=== PATIENT | male | born 1950 | race Caucasian/White ===

== ENCOUNTER 2016-12-31 11:33 | Inpatient (IN) | payer MEDICARE, OTHER ==
[~2016-12-31] VITALS: Ht 172.7 cm; Wt 66.0 kg
[2016-12-31] MEDS ORDERED: IOHEXOL 350 MG/ML 10 ML VIAL (for RAD DIAG) IVCONTRAST ONE (11:34)
[2016-12-31 11:36] VITALS: BP 137/74; PULSE 105; RESP 15; TEMP 98.2; O2SAT 98
--- NOTE | 2016-12-31 11:50 | PD ---
Physical Exam Date Seen by Provider: Dec 31, 2016 Time Seen by Provider: 11:48 Narrative 66 year old male here for evaluation of left arm pain and likely infection. Seen by his PCP who told him to come here for IV antibiotics. Has pain and swelling to the left arm. Been going on for a few weeks. Unknown how he got it. Denies anything like this before. Slightly painful today. Patient has erythema to the left ventral arm with what appears to be a possible ulcer/abscess draining. Vitals are stable in triage. Patient awaiting bed placement. Data Data Last Documented VS Vital Signs Date Time Temp Pulse Resp B/P (MAP) Pulse Ox O2 Delivery O2 Flow Rate FiO2 12/31/16 11:36 98.2 105 15 137/74 (14) 98 MDM Medical Record Reviewed: Yes Supervised Visit with KATELYN: Aurelio Oglesby Dec 31, 2016 11:50
[2016-12-31 12:38] VITALS: BP 133/63; PULSE 105; TEMP 99.2; O2SAT 99
[2016-12-31] MEDS ORDERED: PREG25 PO (12:46)
[2016-12-31] MEDS ORDERED: HYDR12.57 PO (12:46)
[2016-12-31] MEDS ORDERED: VANCOMYCIN INJ 1,000 MG in SODIUM CHLOR 0.9% 250 ML INJ 250 ML IV SCH (13:15)
[2016-12-31] MEDS ORDERED: PIPERACIL-TAZO 4.5 GM PREMIX 100 ML IV ONE (13:15)
[2016-12-31] MEDS ORDERED: SODIUM CHLOR 0.9% 1000 ML INJ 1,000 ML IV ONE (13:15)
[2016-12-31 13:26] LABS: BASOPHIL # 0.1 TH/MM3 (0-0.2); BASOPHIL % 0.5 % (0.0-2.0); EOSINOPHIL # 0.7 TH/MM3 (0-0.4); EOSINOPHIL % 5.1 % (0.0-4.0); HEMATOCRIT 39.7 % (39.0-51.0); LYMPH % 14.6 % (9.0-44.0); MEAN CELL VOLUME 92.5 FL (80.0-100.0); MEAN CORPUSCULAR HEMOGLOBIN 32.2 PG (27.0-34.0); MEAN CORPUSCULAR HGB CONC 34.8 % (32.0-36.0); MONO % 7.7 % (0.0-8.0); NEUT % 72.1 % (16.0-70.0); PLATELET COUNT 340 TH/MM3 (150-450); RED BLOOD COUNT 4.29 MIL/MM3 (4.50-5.90); RED CELL DISTRIBUTION WIDTH 14.1 % (11.6-17.2); WHITE BLOOD COUNT 13.9 TH/MM3 (4.0-11.0)
[2016-12-31 13:27] LABS: HEMO FLAGS AUTO DIFF
[2016-12-31 13:59] LABS: BANDS 9 % (0-6); EOSINOPHILS 5 % (0-4); METAMYELOCYTES 1 % (0-1); PLATELET ESTIMATE SMEAR NORMAL (NORMAL); PLATELET MORPHOLOGY NORMAL (NORMAL); POLYS (SEG NEUTROPHILS) 62 % (16-70); SCAN/DIFF FINAL DIFF MANUAL; WBC DIFF SAMPLE 100
--- NOTE | 2016-12-31 14:20 | PD ---
HPI Chief Complaint: Skin Problem Time Seen by Provider: 12:46 Travel History International Travel<30 days: No Contact w/Intl Traveler<30days: No Traveled to known affect area: No History of Present Illness HPI 66-year-old male came to the emergency room with history of left upper extremity redness and swelling that patient noticed this morning. Patient fell about 4 or 5 days ago and had abrasion and bleeding on his elbow. However was feeling okay except this morning when he noticed this. He went to see his primary care who asked them to come to the emergency room because it was very extensive with a central ulceration. She denies any fever or chills. He was slightly tachycardic upon arrival. Patient says he has had polio as a child which affected his left upper extremity. Patient complains of some pain. Patient is a recovering alcoholic and has not drank in past 6 months. [facility] Past Medical History Narrative Medical List of his past medical, surgical, social and family history as reviewed from the nursing note. Cardiovascular Problems: Yes Diabetes: Yes Patient Takes Glucophage: No Hypertension: Yes Past Surgical History Surgical History: No Previous Surgery Social History Alcohol Use: No Tobacco Use: Yes Substance Use: No Allergies-Medications (Allergen,Severity, Reaction): Coded Allergies: No Known Allergies (Verified Allergy, Unknown, 12/31/16) Comments No known drug allergies. Reported Meds & Prescriptions Reported Meds & Active Scripts Active Reported Hydrochlorothiazide 12.5 Mg Cap 12.5 Mg PO DAILY Lyrica (Pregabalin) 25 Mg Cap 25 Mg PO DAILY Narrative Medication List of his home medications reviewed from the nursing note. Review of Systems Except as stated in HPI: all other systems reviewed are Neg Physical Exam Narrative GENERAL: Awake, alert, mild distress SKIN: Focused skin assessment warm/dry. extensive erythema and swelling of his left upper extremity distal to the elbow with his multiple blisters that seemed clear fluid filled. There is a 2 x 2 centimeter ulceration with his whitish base on the radial aspect of the forearm proximally. No active bleeding. HEAD: Atraumatic. Normocephalic. EYES: Pupils equal and round. No scleral icterus. No injection or drainage. ENT: No nasal bleeding or discharge. Mucous membranes pink and moist. NECK: Trachea midline. No JVD. CARDIOVASCULAR: Regular rate and rhythm. No murmur appreciated. RESPIRATORY: No accessory muscle use. Clear to auscultation. Breath sounds equal bilaterally. GASTROINTESTINAL: Abdomen soft, non-tender, nondistended. Hepatic and splenic margins not palpable. MUSCULOSKELETAL: No obvious deformities. No clubbing. No cyanosis. No edema. NEUROLOGICAL: Awake and alert. No obvious cranial nerve deficits. Motor grossly within normal limits. Normal speech. PSYCHIATRIC: Appropriate mood and affect; insight and judgment normal. Data Data Last Documented VS Orders Orders Basic Metabolic Panel (Bmp) (12/31/16 11:51) Complete Blood Count With Diff (12/31/16 11:51) Blood Culture (12/31/16 11:51) Wound Culture And Gram Stain (12/31/16 11:51) Lactic Acid (12/31/16 11:51) Piperacil-Tazo 4.5 Gm Premix (Zosyn 4.5 (12/31/16 13:15) Vancomycin Inj (Vancomycin Inj) (12/31/16 13:15) Sodium Chlor 0.9% 1000 Ml Inj (Ns 1000 M (12/31/16 13:15) Information Clerk / Telemetry [email or web address] (12/31/16 13:09) Ct Forearm W Iv Contrast (12/31/16 ) Iohexol 350 Inj (Omnipaque 350 Inj) (12/31/16 11:34) Hydrochlorothiazide (Microzide) (01/01/17 09:00) Pregabalin (Lyrica) (01/01/17 09:00) Admit Order (Ed Use Only) (12/31/16 17:54) Labs Laboratory Tests Test 12/31/16 12:50 12/31/16 13:50 12/31/16 15:05 White Blood Count 13.9 TH/MM3 Red Blood Count 4.29 MIL/MM3 Hemoglobin 13.8 GM/DL Hematocrit 39.7 % Mean Corpuscular Volume 92.5 FL Mean Corpuscular Hemoglobin 32.2 PG Mean Corpuscular Hemoglobin Concent 34.8 % Red Cell Distribution Width 14.1 % Platelet Count 340 TH/MM3 Mean Platelet Volume 8.8 FL Neutrophils (%) (Auto) 72.1 % Lymphocytes (%) (Auto) 14.6 % Monocytes (%) (Auto) 7.7 % Eosinophils (%) (Auto) 5.1 % Basophils (%) (Auto) 0.5 % Neutrophils # (Auto) 10.0 TH/MM3 Lymphocytes # (Auto) 2.0 TH/MM3 Monocytes # (Auto) 1.1 TH/MM3 Eosinophils # (Auto) 0.7 TH/MM3 Basophils # (Auto) 0.1 TH/MM3 CBC Comment AUTO DIFF Differential Total Cells Counted 100 Neutrophils % (Manual) 62 % Band Neutrophils % 9 % Lymphocytes % 14 % Monocytes % 9 % Eosinophils % 5 % Neutrophils # (Manual) 10.0 TH/MM3 Metamyelocytes 1 % Differential Comment FINAL DIFF MANUAL Platelet Estimate NORMAL Platelet Morphology Comment NORMAL Lactic Acid Level 0.8 mmol/L Blood Urea Nitrogen 18 MG/DL Creatinine 0.61 MG/DL Random Glucose 95 MG/DL Calcium Level 8.6 MG/DL Sodium Level 138 MEQ/L Potassium Level 5.5 MEQ/L Chloride Level 106 MEQ/L Carbon Dioxide Level 24.5 MEQ/L Anion Gap 8 MEQ/L Estimat Glomerular Filtration Rate 133 ML/MIN MDM Medical Decision Making Medical Screen Exam Complete: Yes Emergency Medical Condition: Yes Medical Record Reviewed: Yes Differential Diagnosis Cellulitis, necrotizing fasciitis, abscess Narrative Course 3:24 PM CBC shows leukocytosis with bandemia. Awaiting for the chemistry and upper extremity CT to rule out necrotizing fasciitis. Patient was given IV vancomycin and IV Zosyn. The chemistry was a week collect. Patient was also given 1 L of IV fluid bolus. 4:09 PM BMP report is finally back. It is within acceptable limits except for a potassium of 5.5 which in my opinion this probably from hemolysis. Awaiting for the CT scan of the arm to be done and resulted. 4:58 PM awaiting for [address] CT to be done and resulted. 5:[address] scan is suggestive of cellulitis without any abscess collection. Given the patient bandemia I would like to admit him for further IV antibiotic treatment. Patient is reluctantly agreeable to this plan. The hospitalist has accepted the patient. Procedures EKG Prior to Arrival: No Diagnosis Primary Impression: Cellulitis of left forearm Admitting Information Admitting Physician Requests: Observation Scripts Levofloxacin (Levaquin) 500 Mg Tablet 500 MG PO DAILY for left upper extremity wound MDD 1 for 7 Days, #7 EA Prov: Rory Wyatt MD 01/03/17 Cephalexin (Cephalexin) 500 Mg Cap 500 MG PO Q8HR for left upper extremity wound MDD 3 for 7 Days, #21 CAP 0 Refills Use as prescribed Prov: Rory Wyatt MD 01/03/17 Mary Jo Maguire MD Dec 31, 2016 14:20
[2016-12-31 16:02] LABS: BICARBONATE 24.5 MEQ/L (21.0-32.0); POTASSIUM 5.5 MEQ/L (3.5-5.1)
--- NOTE | 2016-12-31 17:14 | RADRPT ---
EXAM DATE/TIME: 12/31/2016 16:38 [facility] COMPARISON: No previous studies available for comparison. INDICATIONS : Reddness and swelling to left forearm. IV CONTRAST: 76 cc Omnipaque 350 (iohexol) IV RADIATION DOSE: 14.35 CTDIvol (mGy) MEDICAL HISTORY : Hypertension. Diabetes mellitus type 2. SURGICAL HISTORY : None. ENCOUNTER: Initial ACUITY: 1 day PAIN SCALE: 5/10 LOCATION: Left forearm TECHNIQUE: Volumetric scanning of the forearm was performed. Using automated exposure control and adjustment of the mA and/or kV according to patient size, radiation dose was kept as low as reasonably achievable to obtain optimal diagnostic quality images. DICOM format image data is available electronically fo r review and comparison. FINDINGS: The postcontrast images demonstrate cellulitic changes along the ulnar side of the left forearm. Ther e are edematous changes within the flexor carpi ulnaris at its attachment to the medial humeral epico ndyle. No focal, defined abscess collection is evident. The radius and ulna are intact. No acute fracture is seen. No retained foreign body is present. CONCLUSION: 1. There is cellulitic changes with a small amount of fluid in the deep subcutaneous tissues and with in the proximal flexor carpi ulnaris. No focal, defined abscess collection is evident. No retained fo reign body is seen. Jef Real MD on December 31, 2016 at 17:08 Board Certified Radiologist. This report was verified electronically.
[2016-12-31] MEDS ORDERED: SODIUM CHLORIDE 0.9% FLUSH 10 ML FLUSH IV FLUSH PRN (18:00)
[2016-12-31] MEDS ORDERED: BISACODYL 10 MG SUPP RECTAL PRN (18:00)
[2016-12-31] MEDS ORDERED: ONDANSETRON HCL 4 MG/2 ML VIAL IVP PRN (18:00)
[2016-12-31] MEDS ORDERED: NALOXONE HCL 0.4 MG/ML AMP IV PUSH PRN (18:00)
[2016-12-31] MEDS ORDERED: MAGNESIUM HYDROXIDE SUSP 30 ML CUP PO PRN (18:00)
[2016-12-31] MEDS ORDERED: SENNOSIDES 8.6 MG TAB PO PRN (18:00)
[2016-12-31] MEDS ORDERED: LACTULOSE SYRUP 20 GM/30 ML CUP PO PRN (18:00)
--- NOTE | 2016-12-31 18:10 | HHI.HP ---
HPI Service [facility] Primary Care Physician Kyle Bui, DO Admission Diagnosis forearm cellulitis Diagnoses: Travel History International Travel<30 Days: No Contact w/Intl Traveler <30 Da: No Traveled to Known Affected Are: No History of Present Illness This is a pleasant 66-year-old male patient of Dr. Bui. The patient fell while walking on the beach with his grandchildren about 4-5 days ago. He fell on the sand. He noticed an abrasion on his left upper extremity. This was on the lateral aspect of his proximal left forearm just distal to his left olecranon. This morning he had swelling and redness involving the area proximal to his left wrist up to his mid upper arm. He also has swelling especially around his left elbow and has had problems bending his elbow today. He does not have any problems with his left hand. No fever chills or diaphoresis. He has some ulceration in the anterior aspect of his left proximal forearm with some crusting and is erythema over the whole anterior forearm of the left upper extremity. He is a recovering alcoholic and has not drunk for 6 months. He smokes one cigarette today. He would like to go home today. Review of Systems Other 10 systems reviewed and negative except for the above Past Family Social History Past Medical History Hypertension Diabetes mellitus on oral agents Peripheral neuropathy Polio involving his left upper extremity Reported Medications Reported Meds & Active Scripts Active Reported Hydrochlorothiazide 12.5 Mg Cap 12.5 Mg PO DAILY Lyrica (Pregabalin) 25 Mg Cap 25 Mg PO DAILY Allergies: Coded Allergies: No Known Allergies (Verified Allergy, Unknown, 12/31/16) Family History Significant for diabetes in several family members Social History Former alcoholic, quit alcohol 6 months ago, smokes 1 cigarette a day, no illicit drug use Physical Exam Vital Signs Vital Signs Date Time Temp Pulse Resp B/P (MAP) Pulse Ox O2 Delivery O2 Flow Rate FiO2 12/31/16 12:38 99.2 105 133/63 (86) 99 Room Air 12/31/16 11:36 98.2 105 15 137/74 (95) 98 Physical Exam GENERAL: This is a well-nourished, well-developed patient, in no apparent distress. SKIN: He has several abrasions over his left upper extremity but he has an ulcer on the anterior aspect of the proximal left forearm with a granulating base, is about a quarter in size, or so he has chronic crusting and some erythema around that area with redness and swelling in the skin ranging from the distal left forearm just proximal to the left wrist up to the mid upper arm on the left. He does move his elbow somewhat however both extremes of flexion and extension are limited. The elbow joint itself is tender to palpate Incidentally has a very significant clubbing in all fingers HEAD: Atraumatic. Normocephalic. No temporal or scalp tenderness. EYES: Pupils equal round and reactive. Extraocular motions intact. No scleral icterus. No injection or drainage. ENT: Nose without bleeding, purulent drainage or septal hematoma. Throat without erythema, tonsillar hypertrophy or exudate. Uvula midline. Airway patent. NECK: Trachea midline. No JVD or lymphadenopathy. Supple, nontender, no meningeal signs. CARDIOVASCULAR: Regular rate and rhythm without murmurs, gallops, or rubs. RESPIRATORY: Clear to auscultation. Breath sounds equal bilaterally. No wheezes , rales, or rhonchi. GASTROINTESTINAL: Abdomen soft, non-tender, nondistended. No hepato-splenomegaly , or palpable masses. No guarding. MUSCULOSKELETAL: No calf tenderness.. NEUROLOGICAL: Awake and alert. Cranial nerves II through XII intact. Motor and sensory grossly within normal limits. Five out of 5 muscle strength in all muscle groups. Normal speech. Laboratory Laboratory Tests Test 12/31/16 12:50 12/31/16 13:50 12/31/16 15:05 White Blood Count 13.9 Red Blood Count 4.29 Hemoglobin 13.8 Hematocrit 39.7 Mean Corpuscular Volume 92.5 Mean Corpuscular Hemoglobin 32.2 Mean Corpuscular Hemoglobin Concent 34.8 Red Cell Distribution Width 14.1 Platelet Count 340 Mean Platelet Volume 8.8 Neutrophils (%) (Auto) 72.1 Lymphocytes (%) (Auto) 14.6 Monocytes (%) (Auto) 7.7 Eosinophils (%) (Auto) 5.1 Basophils (%) (Auto) 0.5 Neutrophils # (Auto) 10.0 Lymphocytes # (Auto) 2.0 Monocytes # (Auto) 1.1 Eosinophils # (Auto) 0.7 Basophils # (Auto) 0.1 CBC Comment AUTO DIFF Differential Total Cells Counted 100 Neutrophils % (Manual) 62 Band Neutrophils % 9 Lymphocytes % 14 Monocytes % 9 Eosinophils % 5 Neutrophils # (Manual) 10.0 Metamyelocytes 1 Differential Comment FINAL DIFF MANUAL Platelet Estimate NORMAL Platelet Morphology Comment NORMAL Lactic Acid Level 0.8 Blood Urea Nitrogen 18 Creatinine 0.61 Random Glucose 95 Calcium Level 8.6 Sodium Level 138 Potassium Level 5.5 Chloride Level 106 Carbon Dioxide Level 24.5 Anion Gap 8 Estimat Glomerular Filtration Rate 133 Date/Time Source Procedure Growth Status 12/31/16 12:50 Blood Peripheral Aerobic Blood Culture Pending Received 12/31/16 12:50 Blood Peripheral Anaerobic Blood Culture Pending Received 12/31/16 12:50 Wound Arm Gram Stain Pending Received 12/31/16 12:50 Wound Arm Wound Culture Pending Received Result Diagram: 12/31/16 1250 12/31/16 1505 Imaging Last Impressions Upper Extremity CT 12/31/16 0000 Signed Impressions: Service Date/Time: Saturday, December 31, 2016 16:38 - CONCLUSION: 1. There is cellulitic changes with a small amount of fluid in the deep subcutaneous tissues and within the proximal flexor carpi ulnaris. No focal, defined abscess collection is evident. No retained foreign body is seen. Jef Real MD Caprini VTE Risk Assessment Caprini VTE Risk Assessment: Mod/High Risk (score >= 2) Caprini Risk Assessment Model Point Value = 1 Point Value = 2 Point Value = 3 Point Value = 5 Age 41-60 Minor surgery BMI > 25 kg/m2 Swollen legs Varicose veins or History of unexplained or recurrent spontaneous Oral contraceptives or hormone replacement Sepsis (< 1 month) Serious lung disease, including pneumonia (< 1 month) Abnormal pulmonary function Acute myocardial infarction Congestive heart failure (< 1 month) History of inflammatory bowel disease Medical patient at bed rest Age 61-74 Arthroscopic surgery Major open surgery (> 45 min) Laparoscopic surgery (> 45 min) Malignancy Confined to bed (> 72 hours) Immobilizing plaster cast Central venous access Age >= 75 History of VTE Family history of VTE Factor V Leiden Prothrombin [id number] Lupus anticoagulant Anticardiolipin antibodies Elevated serum homocysteine Heparin-induced thrombocytopenia Other congenital or acquired thrombophilia Stroke (< 1 month) Elective arthroplasty Hip, pelvis, or leg fracture Acute spinal cord injury (< 1 month) Prophylaxis Regimen Total Risk Factor Score Risk Level Prophylaxis Regimen 0-1 Low Early ambulation 2 Moderate Order ONE of the following: *Sequential Compression Device (SCD) *Heparin 5000 units SQ BID 3-4 Higher Order ONE of the following medications: *Heparin 5000 units SQ TID *Enoxaparin/Lovenox 40 mg SQ daily (WT < 150 kg, CrCl > 30 mL/min) *Enoxaparin/Lovenox 30 mg SQ daily (WT < 150 kg, CrCl > 10-29 mL/min) *Enoxaparin/Lovenox 30 mg SQ BID (WT < 150 kg, CrCl > 30 mL/min) AND/OR *Sequential Compression Device (SCD) 5 or more Highest Order ONE of the following medications: *Heparin 5000 units SQ TID (Preferred with Epidurals) *Enoxaparin/Lovenox 40 mg SQ daily (WT < 150 kg, CrCl > 30 mL/min) *Enoxaparin/Lovenox 30 mg SQ daily (WT < 150 kg, CrCl > 10-29 mL/min) *Enoxaparin/Lovenox 30 mg SQ BID (WT < 150 kg, CrCl > 30 mL/min) AND *Sequential Compression Device (SCD) Assessment and Plan Assessment and Plan Assessment Cellulitis involving left upper extremity Swelling involving the area around the left elbow Hyperkalemia Leukocytosis Bandemia Ulcer on the anterior aspect of the proximal left forearm Tobacco use Former alcoholic Management The patient has been admitted to medical floor He was given his first dose of antibiotics at the emergency department. This included Zosyn and vancomycin Follow white count Repeat potassium level and follow DVT prophylaxis with low-dose heparin Consult infectious disease Discussed with patient Discussed with emergency physician 40 minutes Discussed With: Rory Torres MD Dec 31, 2016 18:10
[2016-12-31] MEDS ORDERED: DEXTROSE 50% IN WATER 50 ML VIAL(D50) IV PUSH PRN (18:15)
[2016-12-31] MEDS ORDERED: GLUCAGON 1 MG/ML VIAL OTHER PRN (18:15)
[2016-12-31] MEDS: SODIUM CHLOR 0.9% 1000 ML INJ 1,000 ML IV SCH (18:42)
[2016-12-31 19:54] VITALS: BP 130/64; PULSE 98; RESP 16; O2SAT 98
[2016-12-31 20:00] VITALS: BP 134/67; PULSE 98; RESP 22; TEMP 97.4; O2SAT 97
[2016-12-31] MEDS: INSULIN ASPART SUPPLEMENTAL SCALE SQ SCH (20:15)
[2016-12-31] MEDS: HEPARIN SODIUM - SQ 10,000 UNITS/ML VIAL SQ SCH (20:36)
[2016-12-31] MEDS: SODIUM CHLORIDE 0.9% FLUSH 10 ML FLUSH IV FLUSH SCH (20:41)
[2016-12-31] MEDS: DOCUSATE SODIUM 50 MG/SENNA 8.6 MG TAB PO SCH (20:41)
[2017-01-01] VITALS (7 sets, daily range): BP systolic 118–139; BP diastolic 63–77; PULSE 81–98; RESP 18–22; TEMP 96.8–98.4; O2SAT 95–99
[2017-01-01] MEDS: PIPERACIL-TAZO 3.375 GM PREMIX 50 ML IV SCH ×5 (00:29→22:57)
[2017-01-01] MEDS: VANCOMYCIN INJ 1,000 MG in SODIUM CHLOR 0.9% 250 ML INJ 250 ML IV SCH ×2 (04:21→15:34)
[2017-01-01] MEDS: SODIUM CHLOR 0.9% 1000 ML INJ 1,000 ML IV SCH (04:22)
[2017-01-01] MEDS ORDERED: TRAZ50TA12 PO (06:15)
[2017-01-01] MEDS ORDERED: HYDR-3288 PO (06:19)
[2017-01-01 06:53] LABS: AUTOMATED NEUTROPHIL # 6.3 TH/MM3 (1.8-7.7); BASOPHIL # 0.1 TH/MM3 (0-0.2); BASOPHIL % 0.7 % (0.0-2.0); EOSINOPHIL # 0.7 TH/MM3 (0-0.4); EOSINOPHIL % 6.9 % (0.0-4.0); LYMPH % 19.8 % (9.0-44.0); MEAN CELL VOLUME 92.9 FL (80.0-100.0); MEAN CORPUSCULAR HEMOGLOBIN 31.9 PG (27.0-34.0); MEAN CORPUSCULAR HGB CONC 34.3 % (32.0-36.0); MONO % 8.6 % (0.0-8.0); PLATELET COUNT 315 TH/MM3 (150-450); RED BLOOD COUNT 4.09 MIL/MM3 (4.50-5.90); RED CELL DISTRIBUTION WIDTH 13.7 % (11.6-17.2); WHITE BLOOD COUNT 9.8 TH/MM3 (4.0-11.0)
[2017-01-01 06:54] LABS: HEMO FLAGS AUTO DIFF
[2017-01-01 07:21] LABS: BICARBONATE 24.6 MEQ/L (21.0-32.0); POTASSIUM 3.6 MEQ/L (3.5-5.1)
[2017-01-01] MEDS: INSULIN ASPART SUPPLEMENTAL SCALE SQ SCH ×4 (07:51→19:55)
[2017-01-01] MEDS: HYDROCHLOROTHIAZIDE 12.5 MG CAP PO SCH (08:57)
[2017-01-01] MEDS: DOCUSATE SODIUM 50 MG/SENNA 8.6 MG TAB PO SCH ×2 (08:58→19:55)
[2017-01-01] MEDS: HEPARIN SODIUM - SQ 10,000 UNITS/ML VIAL SQ SCH ×2 (08:58→19:55)
[2017-01-01] MEDS: SODIUM CHLORIDE 0.9% FLUSH 10 ML FLUSH IV FLUSH SCH ×2 (08:58→19:55)
[2017-01-01 09:27] LABS: BANDS 15 % (0-6); EOSINOPHILS 6 % (0-4); MYELOCYTES 3 % (0-0); NEUTROPHIL # MANUAL DIFF 6.3 TH/MM3 (1.8-7.7); PLATELET ESTIMATE SMEAR NORMAL (NORMAL); PLATELET MORPHOLOGY NORMAL (NORMAL); POLYS (SEG NEUTROPHILS) 46 % (16-70); SCAN/DIFF FINAL DIFF MANUAL; WBC DIFF SAMPLE 100
[2017-01-01] MEDS: PREGABALIN 25 MG CAP PO SCH (11:09)
--- NOTE | 2017-01-01 13:21 | HHI.PR ---
Subjective Subjective Remarks Asking what is his diagnoses Complaining of bilateral hip pain, was prescribed hydrocodone as outpatient No chest pain No shortness of breath No fever Tolerating diet well Asking if he is going to be discharged soon, concerned about being able to pay for his rent. Review of Systems Constitutional Constitutional Remarks 12 point review of systems completed, negative except as noted above Vitals/Results Vital Signs Vital Signs Date Time Temp Pulse Resp B/P (MAP) Pulse Ox O2 Delivery O2 Flow Rate FiO2 01/01/17 12:09 18 01/01/17 12:00 97.4 85 18 139/73 (95) 96 01/01/17 08:00 97.0 98 18 123/69 (87) 95 01/01/17 04:00 97.5 85 22 119/66 (83) 99 01/01/17 00:00 98.4 91 22 118/63 (81) 96 12/31/16 20:00 97.4 98 22 134/67 (89) 97 12/31/16 19:55 12/31/16 19:54 98 16 130/64 (86) 98 Room Air CBC/BMP: 01/01/17 0607 01/01/17 0607 Lab Results Laboratory Tests Test 12/31/16 13:50 12/31/16 15:05 12/31/16 18:10 01/01/17 06:07 Lactic Acid Level 0.8 mmol/L Blood Urea Nitrogen 18 MG/DL 11 MG/DL Creatinine 0.61 MG/DL 0.57 MG/DL Random Glucose 95 MG/DL 92 MG/DL Calcium Level 8.6 MG/DL 8.6 MG/DL Sodium Level 138 MEQ/L 141 MEQ/L Potassium Level 5.5 MEQ/L 3.7 MEQ/L 3.6 MEQ/L Chloride Level 106 MEQ/L 109 MEQ/L Carbon Dioxide Level 24.5 MEQ/L 24.6 MEQ/L Anion Gap 8 MEQ/L 7 MEQ/L Estimat Glomerular Filtration Rate 133 ML/MIN 144 ML/MIN White Blood Count 9.8 TH/MM3 Red Blood Count 4.09 MIL/MM3 Hemoglobin 13.0 GM/DL Hematocrit 38.0 % Mean Corpuscular Volume 92.9 FL Mean Corpuscular Hemoglobin 31.9 PG Mean Corpuscular Hemoglobin Concent 34.3 % Red Cell Distribution Width 13.7 % Platelet Count 315 TH/MM3 Mean Platelet Volume 8.7 FL Neutrophils (%) (Auto) 64.0 % Lymphocytes (%) (Auto) 19.8 % Monocytes (%) (Auto) 8.6 % Eosinophils (%) (Auto) 6.9 % Basophils (%) (Auto) 0.7 % Neutrophils # (Auto) 6.3 TH/MM3 Lymphocytes # (Auto) 2.0 TH/MM3 Monocytes # (Auto) 0.8 TH/MM3 Eosinophils # (Auto) 0.7 TH/MM3 Basophils # (Auto) 0.1 TH/MM3 CBC Comment AUTO DIFF Differential Total Cells Counted 100 Neutrophils % (Manual) 46 % Band Neutrophils % 15 % Lymphocytes % 23 % Monocytes % 7 % Eosinophils % 6 % Neutrophils # (Manual) 6.3 TH/MM3 Myelocytes 3 % Differential Comment FINAL DIFF MANUAL Platelet Estimate NORMAL Platelet Morphology Comment NORMAL Red Cell Morphology Comment NORMAL Physical Exam General General Appearance: Well Developed, No Acute Distress, Comfortable Eyes Eye Exam: Pupils Equal, Pupils Reactive Ears & Nose Ears & Nose Exam: Nasal Mucosa [place] Throat Throat Exam: Oral Mucosa [place] & Moist Neck Neck Exam: Neck Supple, Trachea Midline Pulmonary Resp Exam: Breath Sounds Equal, No Distress, Decreased Bases Cardiology CV Exam: Regular Gastrointestinal/Abdomen GI Exam: Soft, Non-Tender, Bowel Sounds Present, Non-Distended Musculoskeletal MS Exam: Joints Intact Integumentary Skin Exam: Warm, Ulcer(s) Skin Remarks Left forearm with circular ulcerated area, erythema noted to forearm up to mid bicep, mild edema, scabbed areas noted to left elbow and hand Extremeties Extremities Exam: Pedal Pulses Palpable, Trace Edema (left forearm with mild edema) Neurologic Neuro Exam: Alert, Awake, Oriented, Speech Clear, Moving All Extremities, No Focal Deficits Psychiatric Psych Exam: Appropriate Responses VTE Prophylaxis VTE Prophylaxis Device: SCDs Assessment/Plan Problem List: (1) Cellulitis of left forearm ICD Codes: L03.114 - Cellulitis of left upper limb Status: Acute (2) Leukocytosis ICD Codes: D72.829 - Elevated white blood cell count, unspecified Status: Acute (3) Ulcerated area left FA Status: Acute (4) Depression ICD Codes: F32.9 - Major depressive disorder, single episode, unspecified Status: Chronic (5) Tobacco abuse ICD Codes: Z72.0 - Tobacco use Status: Chronic (6) Chronic hip pain ICD Codes: M25.559 - Pain in unspecified hip; G89.29 - Other chronic pain Status: Chronic (7) Hyperkalemia ICD Codes: E87.5 - Hyperkalemia Status: Acute Assessment/Plan Continue with empiric antibiotics, follow cultures-negative so far CT of left arm results are noted, no abscess noted ID consult pending Complaining of bilateral hip pain, history of polio Hydrocodone 7.5/325 one tablet by mouth every 6 when necessary pain physical therapy for evaluation Accu-Cheks before meals and at bedtime with insulin therapy as needed Continue with diabetic diet Tobacco abuse counseling Patient indicates that he doesn't want nicotine patch, hasn't smoked in a few days and wants to continue to abstain from it Hyperkalemia initially Potassium back to baseline Continue home medications Monitor CBC Continue with heparin for DVT prophylaxis Discussed with RN Discussed with patient Discussed with CM Discussed with Dr. Wyatt This patient was seen by myself in Dr. Wyatt, this note is written on his behalf Problem Qualifiers (1) Leukocytosis: Qualified Codes: D72.825 - Bandemia (2) Depression: Qualified Codes: F32.9 - Major depressive disorder, single episode, unspecified Valentina Crnae Jan 01, 2017 13:21
[2017-01-01] MEDS: ACETAMINOPHEN/HYDROcodone 325 MG/7.5 MG TAB PO PRN ×2 (13:37→19:54)
[2017-01-01] MEDS: ALBUTEROL SULFATE 90 MCG/ACT HFA 8 GM INHALER INH PRN (16:14)
[2017-01-01] MEDS: traZODone HCL 50 MG TAB PO PRN (22:57)
[2017-01-02 00:23] VITALS: BP 122/75; PULSE 79; RESP 17; TEMP 96.7; O2SAT 96
[2017-01-02 04:52] VITALS: BP 131/64; PULSE 82; RESP 17; TEMP 96.9; O2SAT 96
[2017-01-02] MEDS: VANCOMYCIN INJ 1,000 MG in SODIUM CHLOR 0.9% 250 ML INJ 250 ML IV SCH (05:05)
[2017-01-02] MEDS: ACETAMINOPHEN/HYDROcodone 325 MG/7.5 MG TAB PO PRN ×3 (05:07→19:45)
[2017-01-02] MEDS: ALBUTEROL SULFATE 90 MCG/ACT HFA 8 GM INHALER INH PRN (05:09)
[2017-01-02] MEDS: PIPERACIL-TAZO 3.375 GM PREMIX 50 ML IV SCH ×2 (06:28→11:57)
[2017-01-02] MEDS: SODIUM CHLORIDE 0.9% FLUSH 10 ML FLUSH IV FLUSH SCH ×2 (07:49→19:44)
[2017-01-02] MEDS: PREGABALIN 25 MG CAP PO SCH (07:50)
[2017-01-02] MEDS: HYDROCHLOROTHIAZIDE 12.5 MG CAP PO SCH (07:50)
[2017-01-02] MEDS: INSULIN ASPART SUPPLEMENTAL SCALE SQ SCH ×4 (07:50→19:44)
[2017-01-02] MEDS: DOCUSATE SODIUM 50 MG/SENNA 8.6 MG TAB PO SCH ×2 (07:51→19:44)
[2017-01-02] MEDS: HEPARIN SODIUM - SQ 10,000 UNITS/ML VIAL SQ SCH ×2 (07:52→19:44)
[2017-01-02 08:00] VITALS: BP 118/69; PULSE 72; PULSE 73; RESP 17; TEMP 96.9; O2SAT 95
--- NOTE | 2017-01-02 11:10 | HHI.PR ---
Subjective Subjective Remarks Patient again very anxious, asking when is the doctor coming to see him. I explained to the patient that the doctor was in to see him yesterday Patient is forgetful Anxious to get out of here and go back home Left arm swelling improved, less erythema No fever No chest pain No shortness of breath Review of Systems Constitutional Constitutional Remarks 12 point review of systems completed, negative except as noted above-unreliable Vitals/Results Intake & Output 01/02/17 01/02/17 01/03/17 15:00 23:00 07:00 Intake Total 120 ml Balance 120 ml Intake Oral 120 ml Vital Signs Vital Signs Date Time Temp Pulse Resp B/P (MAP) Pulse Ox O2 Delivery O2 Flow Rate FiO2 01/02/17 08:50 18 01/02/17 08:00 96.9 73 17 118/69 (85) 95 01/02/17 04:52 96.9 82 17 131/64 (86) 96 01/02/17 00:23 96.7 79 17 122/75 (91) 96 01/01/17 20:09 81 01/01/17 20:00 96.8 81 22 134/73 (93) 97 01/01/17 16:00 97.8 84 18 135/77 (96) 97 01/01/17 14:37 18 01/01/17 12:00 97.4 85 18 139/73 (95) 96 CBC/BMP: 01/01/17 0607 01/01/17 0607 Physical Exam General General Appearance: Well Developed, No Acute Distress, Comfortable Eyes Eye Exam: Pupils Equal, Pupils Reactive Ears & Nose Ears & Nose Exam: Nasal Mucosa [place] Throat Throat Exam: Oral Mucosa [place] & Moist Neck Neck Exam: Neck Supple, Trachea Midline Pulmonary Resp Exam: Breath Sounds Equal, No Distress, Decreased Bases Cardiology CV Exam: Regular Gastrointestinal/Abdomen GI Exam: Soft, Non-Tender, Bowel Sounds Present, Non-Distended Musculoskeletal MS Exam: Joints Intact Integumentary Skin Exam: Warm, Ulcer(s) Skin Remarks Left forearm with circular ulcerated area, erythema noted to forearm -improved from yesterday scabbed areas noted to left elbow and hand Extremeties Extremities Exam: Pedal Pulses Palpable, Trace Edema (left forearm with mild edema) Neurologic Neuro Exam: Alert, Awake, Oriented, Speech Clear, Moving All Extremities, No Focal Deficits Psychiatric Psych Exam: Appropriate Responses VTE Prophylaxis VTE Prophylaxis Device: SCDs Assessment/Plan Problem List: (1) Cellulitis of left forearm ICD Codes: L03.114 - Cellulitis of left upper limb Status: Acute (2) Leukocytosis ICD Codes: D72.829 - Elevated white blood cell count, unspecified Status: Acute (3) Ulcerated area left FA Status: Acute (4) Depression ICD Codes: F32.9 - Major depressive disorder, single episode, unspecified Status: Chronic (5) Tobacco abuse ICD Codes: Z72.0 - Tobacco use Status: Chronic (6) Chronic hip pain ICD Codes: M25.559 - Pain in unspecified hip; G89.29 - Other chronic pain Status: Chronic (7) Hyperkalemia ICD Codes: E87.5 - Hyperkalemia Status: Acute Assessment/Plan Continue with empiric antibiotics, wound culture positive for group A beta strep , staph aureus. Sensitivity partially completed CT of left arm results are noted, no abscess noted ID consult pending Complaining of bilateral hip pain, history of polio Hydrocodone 7.5/325 one tablet by mouth every 6 when necessary pain physical therapy for evaluation Accu-Cheks before meals and at bedtime with insulin therapy as needed Continue with diabetic diet Tobacco abuse counseling pt is noted anxious, we will add nicotine patch Hyperkalemia initially Potassium back to baseline Continue home medications Continue with heparin for DVT prophylaxis We'll wait for ID input, left arm cellulitis and ulcerated area improving slowly No fever, no leukocytosis Hopefully discharge on by mouth antibiotics tomorrow Discussed with RN Discussed with patient Discussed with Dr. Wyatt This patient was seen by myself in Dr. Wyatt, this note is written on his behalf Problem Qualifiers (1) Leukocytosis: Qualified Codes: D72.825 - Bandemia (2) Depression: Qualified Codes: F32.9 - Major depressive disorder, single episode, unspecified Valentina Crane Jan 02, 2017 11:10
[2017-01-02] MEDS: NICOTINE 7 MG/24 HR PATCH T-DERMAL SCH (11:13)
[2017-01-02 12:00] VITALS: BP 144/87; PULSE 102; RESP 19; TEMP 96.9; O2SAT 96
--- NOTE | 2017-01-02 13:57 | PD.ID.CON ---
History of Present Illness Service ID Consult Requested By Reason for Consult Evaluation and Mment of Left forearm ulcer with cellulitis Primary Care Physician Kyle Bui, Diagnoses: History of Present Illness is a 66 y.o CM with PMHx of alcoholism. He reports he fell while walking on the beach with his grandchildren about 4-5 days ago. He fell on the sand. He noticed an abrasion on his left upper extremity. This was on the lateral aspect of his proximal left forearm just distal to his left olecranon. This morning he had swelling and redness involving the area proximal to his left wrist up to his mid upper arm. He also has swelling especially around his left elbow and has had problems bending his elbow on admission. He does not have any problems with his left hand. No fever chills or diaphoresis. He has some ulceration in the anterior aspect of his left proximal forearm with some crusting and is erythema over the whole anterior forearm of the left upper extremity on admission per records. He is a recovering alcoholic and has not had a drink for 6 months. He smokes one cigarette today. He would like to go home today. Blood cultures are negative. Wound culture positive for MSSA, Strep and Gram negative ID pending. ID consulted for discharge recs for left forearm ulcer with cellulitis. Review of Systems ROS Limitations: Poor Historian Constitutional: DENIES: Diaphoretic episodes, Fatigue, Fever, Weight gain, Weight loss, Chills, Dizziness, Change in appetite, Night Sweats Endocrine: DENIES: Heat/cold intolerance, Polydipsia, Polyuria, Polyphagia Eyes: DENIES: Blurred vision, Diplopia, Eye inflammation, Eye pain, Vision loss , Photosensitivity, Double Vision Ears, nose, mouth, throat: DENIES: Tinnitus, Hearing loss, Vertigo, Nasal discharge, Oral lesions, Throat pain, Hoarseness, Ear Pain, Running Nose, Epistaxis, Sinus Pain, Toothache, Odynophagia Respiratory: DENIES: Apneas, Cough, Snoring, Wheezing, Hemoptysis, Sputum production, Shortness of breath Cardiovascular: DENIES: Chest pain, Palpitations, Syncope, Dyspnea on Exertion , PND, Lower Extremity Edema, Orthopnea, Claudication Gastrointestinal: DENIES: Abdominal pain, Black stools, Bloody stools, Constipation, Diarrhea, Nausea, Vomiting, Difficulty Swallowing, Anorexia Genitourinary: DENIES: Sexual dysfunction, Urinary frequency, Urinary incontinence, Urgency, Hematuria, Dysuria, Nocturia, Penile Discharge, Testicular Pain, Testicular Swelling Musculoskeletal: DENIES: Joint pain, Muscle aches, Stiffness, Joint Swelling, Back pain, Neck pain Integumentary: DENIES: Abnormal pigmentation, Nail changes, Pruritus, Rash Hematologic/lymphatic: DENIES: Bruising, Lymphadenopathy Immunologic/allergic: DENIES: Eczema, Urticaria Neurologic: DENIES: Abnormal gait, Headache, Localized weakness, Paresthesias, Seizures, Speech Problems, Tremor, Poor Balance Psychiatric: DENIES: Anxiety, Confusion, Mood changes, Depression, Hallucinations, Agitation, Suicidal Ideation, Homicidal Ideation, Delusions Except as stated in HPI: all other systems reviewed are Neg Past Family Social History Allergies: Coded Allergies: No Known Allergies (Verified Allergy, Unknown, 12/31/16) Past Medical History Hypertension Diabetes mellitus on oral agents Peripheral neuropathy Polio involving his left upper extremity Past Surgical History Significant for diabetes in several family members Reported Medications Reported Meds & Active Scripts Active Reported Dresser (Hydrocodone-Acetaminophen) 7.5-325 mg Tab 1 Tab PO TID PRN Trazodone (Trazodone HCl) 50 Mg Tab 50 Mg PO HS PRN Hydrochlorothiazide 12.5 Mg Cap 12.5 Mg PO DAILY Lyrica (Pregabalin) 25 Mg Cap 25 Mg PO DAILY Active Ordered Medications Current Medications Medications (Trade) Dose Ordered Sig/Debora Route Start Time Stop Time Status Last Admin (Microzide) 12.5 mg DAILY PO 01/01/17 09:00 01/02/17 07:50 (Lyrica) 25 mg DAILY PO 01/01/17 09:00 01/02/17 07:50 (NS Flush) 2 ml UNSCH PRN IV FLUSH 12/31/16 18:00 01/02/17 11:57 (NS Flush) 2 ml BID IV FLUSH 12/31/16 21:00 01/02/17 19:44 (Zofran Inj) 4 mg Q6H PRN IVP 12/31/16 18:00 (Heparin Inj) 5,000 units Q12H SQ 12/31/16 21:00 12/31/16 20:36 (Narcan Inj) 0.4 mg UNSCH PRN IV PUSH 12/31/16 18:00 (May-Colace) 1 tab BID PO 12/31/16 21:00 (Milk Of Magnesia Liq) 30 ml Q12H PRN PO 12/31/16 18:00 (Senokot) 17.2 mg Q12H PRN PO 12/31/16 18:00 (Dulcolax Supp) 10 mg DAILY PRN RECTAL 12/31/16 18:00 (Lactulose Liq) 30 ml DAILY PRN PO 12/31/16 18:00 (D50w (Vial) Inj) 50 ml UNSCH PRN IV PUSH 12/31/16 18:15 (Glucagon Inj) 1 mg UNSCH PRN OTHER 12/31/16 18:15 (NovoLOG SUPPLEMENTAL SCALE) 1 ACHS SLIDING SCALE SQ 12/31/16 21:00 (Dresser 7.5-325 Mg) 1 tab Q6H PRN PO 01/01/17 13:30 01/02/17 19:45 (Proair Hfa Inh) 2 puff Q6H PRN INH 01/01/17 13:30 01/02/17 05:09 (Desyrel) 50 mg HS PRN PO 01/01/17 13:30 01/02/17 22:12 (Habitrol 7 Mg Patch.24 Hr) 1 patch DAILY T-DERMAL 01/02/17 11:15 Miscellaneous Information 1 DAILY T-DERMAL 01/03/17 09:00 (Keflex) 500 mg Q8HR PO 01/02/17 14:00 01/02/17 22:12 (Levaquin) 500 mg DAILY PO 01/03/17 09:00 Family History reviewed and NC to current ID problems Social History Former alcoholic, quit alcohol 6 months ago, smokes 1 cigarette a day, no illicit drug use 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 Physical Exam Vital Signs Vital Signs Date Time Temp Pulse Resp B/P (MAP) Pulse Ox O2 Delivery O2 Flow Rate FiO2 01/02/17 12:02 18 01/02/17 12:00 96.9 102 19 144/87 (106) 96 01/02/17 08:50 18 01/02/17 08:00 96.9 73 17 118/69 (85) 95 01/02/17 04:52 96.9 82 17 131/64 (86) 96 01/02/17 00:23 96.7 79 17 122/75 (91) 96 01/01/17 20:09 81 01/01/17 20:00 96.8 81 22 134/73 (93) 97 01/01/17 16:00 97.8 84 18 135/77 (96) 97 Physical Exam GENERAL: This is a well-nourished, well-developed patient, in no apparent distress. SKIN: No rashes, ecchymoses or lesions. Cool and dry. HEAD: Atraumatic. Normocephalic. No temporal or scalp tenderness. EYES: Pupils equal round and reactive. Extraocular motions intact. No scleral icterus. No injection or drainage. ENT: Nose without bleeding, purulent drainage or septal hematoma. Throat without erythema, tonsillar hypertrophy or exudate. Uvula midline. Airway patent. NECK: Trachea midline. Supple, nontender, no meningeal signs. CARDIOVASCULAR: Regular rate and rhythm without murmurs, gallops, or rubs. RESPIRATORY: Clear to auscultation. Breath sounds equal bilaterally. No wheezes , rales, or rhonchi. GASTROINTESTINAL: Abdomen soft, non-tender, nondistended. MUSCULOSKELETAL: LUE with crusting and ulceration, with minimal erythema. NEUROLOGICAL: Awake and alert. Grossly non focal Psych cooperative IV line sites with no e.o infection. Laboratory Date/Time Source Procedure Growth Status 12/31/16 12:50 Blood Peripheral Aerobic Blood Culture - Preliminary NO GROWTH IN 2 DAYS Resulted 12/31/16 12:50 Blood Peripheral Anaerobic Blood Culture - Preliminary NO GROWTH IN 2 DAYS Resulted 12/31/16 12:50 Wound Arm Gram Stain - Final Resulted 12/31/16 12:50 Wound Culture - Preliminary Group A Beta Strep Staphylococcus Aureus Gram Negative Shon Resulted Result Diagram: 01/01/17 0607 01/01/17 0607 Imaging Last Impressions Upper Extremity CT 12/31/16 0000 Signed Impressions: Service Date/Time: Saturday, December 31, 2016 16:38 - CONCLUSION: 1. There is cellulitic changes with a small amount of fluid in the deep subcutaneous tissues and within the proximal flexor carpi ulnaris. No focal, defined abscess collection is evident. No retained foreign body is seen. Jef Real MD Assessment and Plan Assessment and Plan LUE with crusting and small area of cellulitis on dorsal aspect. CT with abnormal findings but clinically appears to have resolved. Patient able to move all fingers and forearm at elbow area. HTN DM Recs Keflex oral Levaquin oral Follow GNR from wound but not sure where this was exactly obtained from. d/w Primary team Mary Palmer MD Jan 02, 2017 13:57
--- NOTE | 2017-01-02 13:58 | HHI.FF ---
Face to Face Verification Diagnosis: (1) Cellulitis of left forearm (2) Hyperkalemia (3) Depression (4) Leukocytosis (5) Tobacco abuse (6) Chronic hip pain (7) Ulcerated area left FA Home Health Nursing Order: Medical education Signs/symptoms of disease process Medication education-adverse effect Wound care and dressing changes Market Master Order: To Evaluate: Living conditions/environment, Support services Order: To Provide: Community services I have seen patient Gold Hirsch on 01/02/17. My clinical findings support the need for the requested home health care services because: Need for psychosocial assistance Impaired cognition/judgement I certify that my clinical findings support that this patient is homebound because: Unsafe to leave home unassisted Need for psychosocial assistance Valentina Crane Jan 02, 2017 13:58
[2017-01-02] MEDS: CEPHALEXIN MONOHYDRATE 500 MG CAP PO SCH ×2 (15:04→22:12)
[2017-01-02 16:00] VITALS: BP 138/68; PULSE 81; RESP 20; TEMP 98.2; O2SAT 98
[2017-01-02 20:00] VITALS: BP 139/72; PULSE 82; RESP 17; TEMP 96.3; O2SAT 98
[2017-01-02] MEDS: traZODone HCL 50 MG TAB PO PRN (22:12)
[2017-01-03 00:39] VITALS: BP 118/69; PULSE 74; RESP 17; TEMP 96.9; O2SAT 97
[2017-01-03] MEDS: CEPHALEXIN MONOHYDRATE 500 MG CAP PO SCH ×2 (05:01→13:09)
[2017-01-03] MEDS: ACETAMINOPHEN/HYDROcodone 325 MG/7.5 MG TAB PO PRN (05:02)
[2017-01-03 08:00] VITALS: BP 118/71; PULSE 68; RESP 18; TEMP 97.8; O2SAT 96
[2017-01-03] MEDS: INSULIN ASPART SUPPLEMENTAL SCALE SQ SCH ×2 (08:00→12:00)
[2017-01-03] MEDS: DOCUSATE SODIUM 50 MG/SENNA 8.6 MG TAB PO SCH (08:55)
[2017-01-03] MEDS: HEPARIN SODIUM - SQ 10,000 UNITS/ML VIAL SQ SCH (08:55)
[2017-01-03] MEDS: PREGABALIN 25 MG CAP PO SCH (08:55)
[2017-01-03] MEDS: HYDROCHLOROTHIAZIDE 12.5 MG CAP PO SCH (08:55)
[2017-01-03] MEDS: SODIUM CHLORIDE 0.9% FLUSH 10 ML FLUSH IV FLUSH SCH (08:55)
[2017-01-03] MEDS: NICOTINE 7 MG/24 HR PATCH T-DERMAL SCH (08:56)
[2017-01-03] MEDS ORDERED: LEVOFLOXACIN 500 MG TAB PO SCH (09:00)
[2017-01-03] MEDS ORDERED: REMOVE OLD PATCH T-DERMAL SCH (09:00)
--- NOTE | 2017-01-03 10:31 | HHI.PR ---
Subjective Subjective Remarks resting in the bed, anxious to go home, worried about losing his apartment afebrile, BP normal trends today. BS walker in , close to bed for safety ID saw, recommends Keflex and Levaquin PO Wound care evaled , including Dr. Arnold, recommend OP wound care. Order completed Review of Systems Constitutional Constitutional: Weakness Constitutional Remarks 10 point ROS done Integumentary Skin: Wounds Skin Remarks lt. fa, mild erythema, no edema, lt. elbow scab, dry intact Psychiatric Psychiatric: Agitation (easily at rest, wants to go home ) Vitals/Results Vital Signs Vital Signs Date Time Temp Pulse Resp B/P (MAP) Pulse Ox O2 Delivery O2 Flow Rate FiO2 01/03/17 08:00 97.8 68 18 118/71 (87) 96 01/03/17 00:39 96.9 74 17 118/69 (85) 97 01/02/17 20:00 96.3 82 17 139/72 (94) 98 01/02/17 16:00 98.2 81 20 138/68 (91) 98 01/02/17 12:02 18 01/02/17 12:00 96.9 102 19 144/87 (106) 96 CBC/BMP: 01/01/17 0607 01/01/17 0607 Imaging Remarks Last Impressions Upper Extremity CT 12/31/16 0000 Signed Impressions: Service Date/Time: Saturday, December 31, 2016 16:38 - CONCLUSION: 1. There is cellulitic changes with a small amount of fluid in the deep subcutaneous tissues and within the proximal flexor carpi ulnaris. No focal, defined abscess collection is evident. No retained foreign body is seen. Jef Real MD Physical Exam General General Appearance: No Acute Distress, Comfortable Appearance Remarks thin Eyes Eye Exam: Pupils Equal, Pupils Reactive Ears & Nose Ears & Nose Exam: Nasal Mucosa [place] Throat Throat Exam: Oral Mucosa [place] & Moist Neck Neck Exam: Neck Supple, Trachea Midline Pulmonary Resp Exam: Breath Sounds Equal, No Distress Resp Remarks no cough Cardiology CV Exam: Regular Gastrointestinal/Abdomen GI Exam: Soft, Non-Tender, Bowel Sounds Present, Non-Distended Musculoskeletal MS Exam: Joints Intact Integumentary Skin Exam: Warm, Ulcer(s) Extremeties Extremities Exam: Pedal Pulses Palpable, Trace Edema (left forearm with mild edema) Neurologic Neuro Exam: Alert, Awake, Speech Clear, Moving All Extremities, No Focal Deficits Psychiatric Psych Exam: Appropriate Responses VTE Prophylaxis VTE Prophylaxis Device: SCDs Assessment/Plan Problem List: (1) Cellulitis of left forearm ICD Codes: L03.114 - Cellulitis of left upper limb Status: Acute (2) Leukocytosis ICD Codes: D72.829 - Elevated white blood cell count, unspecified Status: Acute (3) Ulcerated area left FA Status: Acute (4) Depression ICD Codes: F32.9 - Major depressive disorder, single episode, unspecified Status: Chronic (5) Tobacco abuse ICD Codes: Z72.0 - Tobacco use Status: Chronic (6) Chronic hip pain ICD Codes: M25.559 - Pain in unspecified hip; G89.29 - Other chronic pain Status: Chronic (7) Hyperkalemia ICD Codes: E87.5 - Hyperkalemia Status: Acute Assessment/Plan vital signs reviewed, normal trends labs reviewed, initial hyperkalemia resolved,, monitor bowel regimen, Cellulitis lt. forearm, no abcess, Continue with empiric antibiotics, wound culture positive for group A beta strep, staph aureus. ID for home antibiotic plan of care, recommend Keflex, dose is 500mg PO every 8 hours, Levaquin 500mg. daily Dr. Brown and wound care nurse, wrapped lt. forearm, dressing good for 3 days. Needs f/u in OP wound center . Orders given Chronic bilateral hip pain, history of polio pain management physical therapy, walker at bedside, No PT needed for home per PT eval. Accu-Cheks before meals and at bedtime with insulin therapy as needed Continue with diabetic diet, ada DVT prophylaxis, encouraged nutrition and PO intake Discussed with RN Discussed with patient Discussed with Dr. Wyatt, seen on his behalf Problem Qualifiers (1) Leukocytosis: Qualified Codes: D72.825 - Bandemia (2) Depression: Qualified Codes: F32.9 - Major depressive disorder, single episode, unspecified Mary Grace Jones Jan 03, 2017 10:31
--- NOTE | 2017-01-03 10:40 | HHI.FF ---
Face to Face Verification Diagnosis: (1) Cellulitis of left forearm (2) Tobacco abuse (3) Chronic hip pain (4) Ulcerated area left FA Physical Therapy Order: Evaluate and Treat, Improve ambulation Home Health Nursing Order: Nursing assessment with vital signs I have seen patient Gold Hirsch on 01/03/17. My clinical findings support the need for the requested home health care services because: Deconditioned w/ increased weakness I certify that my clinical findings support that this patient is homebound because: Impaired cognitive ability/safety Unsteady gait/balance initial eval for lt. fa dressing in OP wound care center. Mary Grace Jones Jan 03, 2017 10:40
--- NOTE | 2017-01-03 11:59 | PD.WCN.NOT ---
Wound Consult Description: Received consult for wound management of L forearm wound for recommendations from Valentina ACHARYA Communicated with: PATRIZIA Jones, HAWA Woodruff,and Doctor Galo Recommendation: Please cleanse wound to L inner forearm with normal saline or wound cleanser and apply optifoam basic non adhesive foam dressing over wound bed and secure with rolled gauze and tape. Change dressing every 3 days and PRN if saturated or dislodged. Patient recommended to an outpatient wound care center for continued treatment of wound. Additional Information: Patient seen on 01/03/2017 at 10am on [address] [place] [address] for evaluation of wound management of L forearm. Wound is located on L inner forearm and is open to air. He also has a scab on L elbow that is also open to air.Cleansed wound to L inner forearm with normal saline and pat dry. Wound bed is noted with ~80%dark red tissue and ~20% dry yellow crust. Wound is non draining and is without odor. No induration, or heat is noted to periwound. Slight erythema can be seen to periwound. Wound measures 2.5cm x 3cm x ~0.4cm. Applied optifoam basic non adhesive foam over wound bed and secured dressing with rolled gauze and tape.dated dressing. Patient assessed with Doctor Galo in room and HAWA Barraza. Patient will need to follow up with an outpatient wound care clinic for L forearm wound. Bri Buitrago [facility] Jan 03, 2017 11:59
[2017-01-03] MEDS ORDERED: CEPH500C PO (13:34)
[2017-01-03] MEDS ORDERED: LEVA500T20 PO (13:34)
--- NOTE | 2017-01-17 21:16 | HHI.DS ---
Discharge Summary Admission Date Dec 31, 2016 at 18:00 Discharge Date: Jan 03, 2017 Admitting Diagnosis forearm cellulitis (1) Cellulitis of left arm ICD Codes: L03.114 - Cellulitis of left upper limb Diagnosis: Principal Status: Acute (2) Ulcerated area left FA Status: Acute (3) Hyperkalemia ICD Codes: E87.5 - Hyperkalemia Status: Acute (4) Depression ICD Codes: F32.9 - Major depressive disorder, single episode, unspecified Status: Chronic (5) Leukocytosis ICD Codes: D72.829 - Elevated white blood cell count, unspecified Status: Acute (6) Chronic hip pain ICD Codes: M25.559 - Pain in unspecified hip; G89.29 - Other chronic pain Status: Chronic (7) Tobacco abuse ICD Codes: Z72.0 - Tobacco use Status: Chronic Brief History This is a pleasant 66-year-old male patient of Dr. Bui. The patient fell while walking on the beach with his grandchildren about 4-5 days ago. He fell on the sand. He noticed an abrasion on his left upper extremity. This was on the lateral aspect of his proximal left forearm just distal to his left olecranon. This morning he had swelling and redness involving the area proximal to his left wrist up to his mid upper arm. He also has swelling especially around his left elbow and has had problems bending his elbow today. He does not have any problems with his left hand. No fever chills or diaphoresis. He has some ulceration in the anterior aspect of his left proximal forearm with some crusting and is erythema over the whole anterior forearm of the left upper extremity. He is a recovering alcoholic and has not drunk for 6 months. He smokes one cigarette today. He would like to go home today. Imaging Last Impressions Upper Extremity CT 12/31/16 0000 Signed Impressions: Service Date/Time: Saturday, December 31, 2016 16:38 - CONCLUSION: 1. There is cellulitic changes with a small amount of fluid in the deep subcutaneous tissues and within the proximal flexor carpi ulnaris. No focal, defined abscess collection is evident. No retained foreign body is seen. Jef Real MD Hospital Course This is a pleasant 66-year-old male patient of Dr. Bui. The patient fell while walking on the beach with his grandchildren about 4-5 days ago. He fell on the sand. He noticed an abrasion on his left upper extremity. This was on the lateral aspect of his proximal left forearm just distal to his left olecranon. The next day, he had swelling and redness involving the area proximal to his left wrist up to his mid upper arm. He also had swelling especially around his left elbow and has had problems bending his elbow today. He did not have any problems with his left hand. No fever chills or diaphoresis. He has some ulceration in the anterior aspect of his left proximal forearm with some crusting and there was erythema over the whole anterior forearm of the left upper extremity. He is a recovering alcoholic and has not drunk for 6 months. He smoked one cigarette today. Pt. was admitted and evaluated. Laboratory work up was done. During the course of the hospitalization, the following took place: Continue with empiric antibiotics, wound culture positive for group A beta strep , staph aureus. Sensitivity partially completed CT of arm ordered. with results as noted, no abscess noted ID consulted. Complained of bilateral hip pain, history of polio Hydrocodone 7.5/325 one tablet by mouth every 6 when necessary pain physical therapy for evaluation Was ordered Accu-Cheks before meals and at bedtime with insulin therapy as needed Continued with diabetic diet Tobacco abuse counseling pt was noted anxious, added nicotine patch Hyperkalemia initially. Potassium back to baseline Continued home medications Continued with heparin for DVT prophylaxis CM consulted for [facility] Wound care nurse also consulted, and gave recommendations ID evaluated. Recommended Keflex, dose is 500mg PO every 8 hours, Levaquin 500mg. daily Pt. to f/u with Dr. Brown and wound care nurse. Needs f/u in OP wound center . Orders given Pt. afebrile, labs stable Discharged home in stable condition. Left arm, improved, swelling and erythema resolving. Pt Condition on Discharge: Stable Discharge Disposition: Disch w/ Home Health Serv Discharge Instructions DIET: Follow Instructions for: As Tolerated, No Restrictions Activities you can perform: Regular-No Restrictions Follow up Referrals: Wound Care Clinic - 3-5 Days with [facility] Continued Medications: Hydrochlorothiazide (Hydrochlorothiazide) 12.5 Mg Cap 12.5 MG PO DAILY, #30 CAP 0 Refills Hydrocodone-Acetaminophen ([place]) 7.5-325 mg Tab 1 TAB PO TID PRN for PAIN, TAB 0 Refills Pregabalin (Lyrica) 25 Mg Cap 25 MG PO DAILY, #30 CAP 0 Refills Trazodone (Trazodone) 50 Mg Tab 50 MG PO HS PRN for INSOMNIA, #30 TAB 0 Refills Valentina CraneP Jan 17, 2017 21:16
== END 2017-01-03 14:57 | disposition home health service (06) | DRG 603 ==
LOC: NEPC 11:33 → NEDA 17:56 → OBSVTOIN 18:00 → N07B 20:02
PROVIDERS: ADMIT Specialist; ATTEND Specialist
DX: L03.114 Cellulitis of left upper limb (principal); E87.5 Hyperkalemia; I10 Essential (primary) hypertension; E11.9 Type 2 diabetes mellitus without complications; D72.825 Bandemia; F32.9 Major depressive disorder, single episode, unspecified; G62.9 Polyneuropathy, unspecified; F10.21 Alcohol dependence, in remission; R00.0 Tachycardia, unspecified; Z86.12 Personal history of poliomyelitis; F17.210 Nicotine dependence, cigarettes, uncomplicated; L98.499 Non-pressure chronic ulcer of skin of other sites with unspecified severity; M25.551 Pain in right hip; M25.552 Pain in left hip; G89.29 Other chronic pain
CPT/HCPCS: 73201; 76937; 80048; 82948; 83605; 84132; 85007; 85027; 86403; 87040; 87070; 87077; 87147; 87186; 96365; 96366; 96367; J1644; J2543; J3370; J7030; J7050; Q9967